=== PATIENT | female | born 2000 | race Caucasian/White ===

== ENCOUNTER 2022-02-13 09:55 | Emergency (ER) | payer BC ==
[2022-02-13] MEDS ORDERED: Sodium Chloride 0.9% 2.5 ML Syringe FLUSH PRN (10:16)
[2022-02-13] MEDS ORDERED: Sodium Chloride 0.9% 10 ML Syringe FLUSH PRN (10:16)
[2022-02-13] MEDS ORDERED: Ondansetron 4 MG/2 ML SDV IVPUSH ONE (10:29)
[2022-02-13] MEDS ORDERED: Ketorolac 30 MG/ML SDV IVPUSH ONE (10:29)
[2022-02-13] MEDS ORDERED: Sodium Chloride 0.9% 1,000 ML IV ONE (10:29)
[2022-02-13] MEDS ORDERED: HYDROmorphone 2 MG/ML Syringe IVPUSH ONE (10:29)
[2022-02-13 11:00] LABS: CARBON DIOXIDE,CO2 24.5 mmol/L (21.0-32.0); POTASSIUM,K 4.4 mmol/L (3.5-5.1)
== END 2022-02-13 12:37 | disposition home or self-care (01) ==
LOC: MW.ED 09:55
DX: N13.2 Hydronephrosis with renal and ureteral calculous obstruction (principal)
CPT/HCPCS: 36415; 74176; 80053; 81001; 83690; 84703; 85025; 96374; 96375; 99284; J1170; J1885; J2405; J3490; J7030

== ENCOUNTER 2023-03-21 13:18 | Emergency (ER) | payer BC ==
[2023-03-21] MEDS ORDERED: Sodium Chloride 0.9% 2.5 ML Syringe FLUSH PRN (14:51)
[2023-03-21] MEDS ORDERED: Sodium Chloride 0.9% 1,000 ML IV STA (14:51)
[2023-03-21] MEDS ORDERED: Sodium Chloride 0.9% 10 ML Syringe FLUSH PRN (14:51)
[2023-03-21 15:17] LABS: APPEARANCE,URINE SLT CLOUDY; BILIRUBIN,URINE NEGATIVE (NEGATIVE); COLOR,URINE YELLOW; GLUCOSE,URINE NEGATIVE (NEGATIVE); KETONES,URINE 40 mg/dL (NEGATIVE); LEUKOCYTE ESTERASE,URINE NEGATIVE (NEGATIVE); NITRITE,URINE NEGATIVE (NEGATIVE); OCCULT BLOOD,URINE MODERATE (NEGATIVE); PROTEIN,URINE NEGATIVE (NEGATIVE); UROBILINOGEN,URINE 0.2 EU/dL (<2.0)
[2023-03-21 15:27] LABS: BASOPHILS PERCENT AUTO 0.1 % (0.0-1.5); EOSINOPHILS PERCENT AUTO 0.1 % (0.0-7.0); HEMATOCRIT 39.1 % (36.0-46.0); LYMPHOCYTES ABSOLUTE AUTO 0.8 K/uL (0.6-2.4); LYMPHOCYTES PERCENT AUTO 6.5 % (16.0-40.0); MEAN CORPUSCULAR HEMOGLOBIN 28.8 pg (27.0-32.0); MEAN CORPUSCULAR HGB CONC 33.2 g/dL (31.0-37.0); MEAN CORPUSCULAR VOLUME 86.5 fL (80.0-98.0); MONOCYTES ABSOLUTE AUTO 0.4 K/uL (0.0-0.8); MONOCYTES PERCENT AUTO 3.1 % (0.0-15.0); NEUTROPHILS ABSOLUTE AUTO 10.9 K/uL (1.4-5.7); NEUTROPHILS PERCENT AUTO 90.2 % (48.0-80.0); NRBC ABSOLUTE 0 K/uL; PLATELET COUNT,PLT 197 K/uL (150-400); RED BLOOD CELL COUNT 4.52 M/uL (4.30-5.90); WHITE BLOOD CELL COUNT,WBC 12.12 K/uL (4.0-11.0)
[2023-03-21 15:28] LABS: AMORPHOUS SEDIMENT,URINE MODERATE (NEGATIVE); BACTERIA,URINE FEW (NEGATIVE); EPITHELIAL CELLS,URINE FEW (NONE-FEW); MUCUS,URINE FEW (NONE-MOD); RBC,URINE 20-30 (0-2/HPF); SQUAMOUS EPITHELIAL CELLS,UR FEW; WBC,URINE 0-2 (0-5/HPF)
[2023-03-21] MEDS ORDERED: Ondansetron 4 MG/2 ML SDV IVPUSH STA (15:33)
[2023-03-21 16:00] LABS: A/G RATIO 0.8 (0.9-1.6); ALBUMIN 3.3 g/dL (3.4-5.0); BILIRUBIN TOTAL 0.1 mg/dL (0.2-1.0); CALCIUM 9.3 mg/dL (8.5-10.1); CARBON DIOXIDE,CO2 24.4 mmol/L (21.0-32.0); CREATININE 0.7 mg/dL (0.6-1.0); EST CRCL DRUG DOSING (CG) 131.74 mL/min; POTASSIUM,K 3.8 mmol/L (3.5-5.1); PROTEIN TOTAL,TP 7.3 g/dL (6.4-8.2)
== END 2023-03-21 16:51 | disposition home or self-care (01) ==
LOC: MW.ED 13:18
DX: O26.832 Pregnancy related renal disease, second trimester (principal); N23 Unspecified renal colic; O99.892 Other specified diseases and conditions complicating childbirth; R31.9 Hematuria, unspecified; Z3A.16 16 weeks gestation of pregnancy
CPT/HCPCS: 36415; 80053; 81001; 85025; 96361; 96374; 99284; J2405; J3490; J7030

== ENCOUNTER 2023-09-05 07:11 | Inpatient (IN) | payer BC ==
[2023-09-05] MEDS ORDERED: Sodium Chloride 0.9% 2.5 ML Syringe FLUSH PRN (07:51)
[2023-09-05] MEDS ORDERED: Tranexamic Acid IN NACL,ISO-OS 1,000 MG in Premix Bag 1 BAG IV PRN ×2 (07:51)
[2023-09-05] MEDS ORDERED: Carboprost Tromethamine 250 MCG/1 mL Vial IM PRN (07:51)
[2023-09-05] MEDS ORDERED: Misoprostol 200 MCG Tab PO PRN (07:51)
[2023-09-05] MEDS ORDERED: Sodium Chloride 0.9% 20 ML SDV IV PRN (07:51)
[2023-09-05] MEDS ORDERED: Sodium Chloride 0.9% 10 ML Syringe FLUSH PRN (07:51)
[2023-09-05] MEDS ORDERED: Methylergonovine 0.2 MG/1 ML Amp IM PRN (07:51)
[2023-09-05] MEDS ORDERED: Ondansetron 4 MG/2 ML SDV IVPUSH PRN (07:51)
[2023-09-05] MEDS ORDERED: Nalbuphine 10 MG/0.5 ML Syringe IVPUSH PRN (07:51)
[2023-09-05] MEDS ORDERED: Water For Irrigation,Sterile 1,000 ML Container IRR PRN (07:51)
[2023-09-05] MEDS ORDERED: Lidocaine 1% 50 ML MDV INJECT PRN (07:51)
[2023-09-05] MEDS ORDERED: Misoprostol 25 MCG (1/4 of 100 MCG) Tab PO PRN ×2 (07:53→12:15)
[2023-09-05] MEDS ORDERED: Terbutaline 1 MG/ML SDV SUBCUT PRN (07:53)
[2023-09-05] MEDS ORDERED: Misoprostol 25 MCG (1/4 of 100 MCG) Tab VAG PRN ×2 (07:53→12:15)
[2023-09-05] MEDS ORDERED: Oxytocin/0.9 % Sodium Chloride 30 UNIT/500 ML BAG IV SCH ×2 (08:00)
[2023-09-05 08:07] LABS: HEMATOCRIT 30.4 % (37.0-47.0); HEMOGLOBIN 9.8 g/dL (12.0-16.0); MEAN CORPUSCULAR HEMOGLOBIN 25.7 pg (28.0-32.0); MEAN CORPUSCULAR HGB CONC 32.2 g/dL (32.0-36.0); MEAN CORPUSCULAR VOLUME 79.6 fL (83.0-99.0); MEAN PLATELET VOLUME 12.5 fL (9.4-12.3); PLATELET COUNT,PLT 204 K/uL (150-400); RED BLOOD CELL COUNT 3.82 M/uL (4.10-5.30); WHITE BLOOD CELL COUNT,WBC 10.26 K/uL (3.9-11.3)
[2023-09-05] MEDS: Lactated Ringers 1,000 ML IV SCH ×3 (08:26→22:05)
[2023-09-05] MEDS ORDERED: Phenylephrine HCl 0.5 MG/5 ML AMP ONE (20:17)
[2023-09-05] MEDS ORDERED: Bupivacaine 0.5% 10 ML SDV ONE (20:17)
[2023-09-05] MEDS ORDERED: Ropivacaine HCl/PF 200 ML ONE (20:17)
[2023-09-05] MEDS ORDERED: ePHEDrine 50 MG/ML SDV IVPUSH PRN ×2 (20:41)
[2023-09-05] MEDS ORDERED: Ropivacaine HCl/PF 400 MG in Premix Bag 1 BAG EPIDUR SCH (20:45)
[2023-09-05] MEDS ORDERED: Acetaminophen 500 MG Tab PO ONE (22:41)
[2023-09-05] MEDS ORDERED: ceFAZolin 2 GM in Sodium Chloride 0.9% 50 ML IV SCH (23:00)
[2023-09-06] MEDS: Phenylephrine HCl 0.5 MG/5 ML AMP IVPUSH PRN ×2 (00:26→00:29)
[2023-09-06] MEDS ORDERED: Famotidine 20 MG Tab PO PRN (00:58)
[2023-09-06] MEDS ORDERED: Lanolin 100% Cream 7 GM Tube TOP PRN (00:58)
[2023-09-06] MEDS ORDERED: diphenhydrAMINE 50 MG Cap PO PRN (00:58)
[2023-09-06] MEDS ORDERED: Witch Hazel Medicated Pads 40/Jar TOP PRN (00:58)
[2023-09-06] MEDS ORDERED: Benzocaine/Menthol 20%-0.5% Spray 78 GM Cannister TOP PRN (00:58)
[2023-09-06] MEDS ORDERED: Aluminum Hydroxide/Magnesium Hydroxide/Simethicone XS Susp 30 ML Cup PO PRN (00:58)
[2023-09-06] MEDS ORDERED: Simethicone 80 MG Tab.Chew PO PRN (00:58)
[2023-09-06] MEDS ORDERED: Misoprostol 100 MCG Tab RECTAL ONE (02:17)
[2023-09-06] MEDS: Ibuprofen 800 MG Tab PO PRN ×3 (03:37→20:02)
[2023-09-06] MEDS: Prenatal Multivitamin with Calcium/Folic Acid/Iron Tab PO SCH (07:59)
[2023-09-06] MEDS: Acetaminophen 500 MG Tab PO PRN ×3 (07:59→23:57)
[2023-09-06] MEDS: Ferrous Sulfate 325 MG Tab PO SCH ×3 (07:59→17:05)
[2023-09-06] MEDS: Docusate Sodium 100 MG Cap PO PRN ×2 (11:34→23:57)
[2023-09-07 06:05] LABS: HEMATOCRIT 24.7 % (37.0-47.0); HEMOGLOBIN 7.8 g/dL (12.0-16.0); MEAN CORPUSCULAR HEMOGLOBIN 25.7 pg (28.0-32.0); MEAN CORPUSCULAR HGB CONC 31.6 g/dL (32.0-36.0); MEAN CORPUSCULAR VOLUME 81.3 fL (83.0-99.0); MEAN PLATELET VOLUME 12.2 fL (9.4-12.3); PLATELET COUNT,PLT 149 K/uL (150-400); RED BLOOD CELL COUNT 3.04 M/uL (4.10-5.30); WHITE BLOOD CELL COUNT,WBC 10.35 K/uL (3.9-11.3)
[2023-09-07] MEDS: Ferrous Sulfate 325 MG Tab PO SCH ×2 (07:47→13:03)
[2023-09-07] MEDS: Docusate Sodium 100 MG Cap PO PRN (07:47)
[2023-09-07] MEDS: Prenatal Multivitamin with Calcium/Folic Acid/Iron Tab PO SCH (07:47)
[2023-09-07] MEDS: Ibuprofen 800 MG Tab PO PRN (07:50)
== END 2023-09-07 14:02 | disposition home or self-care (01) | DRG 560 ==
LOC: MW.OBCHECK 07:11 → MW.OB 07:15 → MW.OBCHECK 07:51 → OBSVTOIN 09-06 01:32 → MW.OB 09-06 05:04
PROVIDERS: ADMIT Obstetrics & Gynecology; ATTEND Obstetrics & Gynecology Obstetrics
PROC: 10E0XZZ Delivery of Products of Conception, External Approach (ICD-10-PCS; principal; 2023-09-06)
PROC: 3E033VJ Introduction of Other Hormone into Peripheral Vein, Percutaneous Approach (ICD-10-PCS; 2023-09-06)
PROC: 3E0P7VZ Introduction of Hormone into Female Reproductive, Via Natural or Artificial Opening (ICD-10-PCS; 2023-09-06)
PROC: 10907ZC Drainage of Amniotic Fluid, Therapeutic from Products of Conception, Via Natural or Artificial Opening (ICD-10-PCS; 2023-09-06)
PROC: 0KQM0ZZ Repair Perineum Muscle, Open Approach (ICD-10-PCS; 2023-09-06)
PROC: 3E0R3BZ Introduction of Anesthetic Agent into Spinal Canal, Percutaneous Approach (ICD-10-PCS; 2023-09-06)
PROC: 00HU33Z Insertion of Infusion Device into Spinal Canal, Percutaneous Approach (ICD-10-PCS; 2023-09-06)
PROC: 10H07YZ Insertion of Other Device into Products of Conception, Via Natural or Artificial Opening (ICD-10-PCS; 2023-09-06)
DX: O48.0 Post-term pregnancy (principal); Z37.0 Single live birth; O69.81X0 Labor and delivery complicated by cord around neck, without compression, not applicable or unspecified; O70.1 Second degree perineal laceration during delivery; O76 Abnormality in fetal heart rate and rhythm complicating labor and delivery; O99.02 Anemia complicating childbirth; Z3A.41 41 weeks gestation of pregnancy
CPT/HCPCS: 36415; 51702; 59025; 59409; 85027; 86592; 86850; 86900; 86901; A9270-GY; J0665; J0690; J2371; J2405; J2590; J2795; J3490; J7120